=== PATIENT | male | born 1970 | race Two or more races ===

== ENCOUNTER 2025-04-10 16:00 | Emergency (ER) | payer OTHER ==
[~2025-04-10] VITALS: Ht 172.7 cm; Wt 81.2 kg
[2025-04-10] MEDS ORDERED: KETOROLAC TROMETHAMINE 60 MG VIAL IM ONE (19:30)
[2025-04-10] MEDS ORDERED: CEFTRIAXONE SODIUM 1,000 MG VIAL IM ONE (19:30)
[2025-04-10] MEDS ORDERED: LOTRIMIN ULTRA12 GM TOP (19:33)
[2025-04-10] MEDS ORDERED: CEPHALEXIN500 MG PO (19:33)
[2025-04-10] MEDS ORDERED: CEFTRIAXONE SODIUM 1,000 MG VIAL ONE (19:48)
[2025-04-10] MEDS ORDERED: KETOROLAC TROMETHAMINE 30 MG VIAL ONE (19:48)
[2025-04-10] MEDS ORDERED: LIDOCAINE HCL 1% 10ML VIAL ONE (19:48)
== END 2025-04-10 20:01 | disposition home or self-care (01) ==
LOC: ER 16:00
DX: B35.3 Tinea pedis (principal)